=== PATIENT | male | born 1985 | race Two or more races ===

== ENCOUNTER 2022-08-15 11:19 | Emergency (ER) | payer OTHER ==
[~2022-08-15] VITALS: Ht 177.8 cm; Wt 107.5 kg
--- NOTE | 2022-08-15 11:20 | NUR ---
[id number], INVOLUNTARY "TWITCHING" X 1 HOUR. HX SEIZURE. 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
[2022-08-15] MEDS ORDERED: LORAZEPAM INJ 2 MG/ML VIAL ONE (11:25)
[2022-08-15] MEDS ORDERED: LORAZEPAM INJ 2 MG/ML VIAL IV ONE (11:30)
[2022-08-15] MEDS ORDERED: IV NS 0.9% 1,000 ML BAG IV ONE (12:00)
[2022-08-15 12:22] LABS: BASOPHILS % (AUTO) 0.4 % (0.0-2.0); EOSINOPHILS % (AUTO) 1.9 % (0.0-6.0); HEMATOCRIT 50 % (39-51); HEMOGLOBIN 15.9 g/dL (13.5-17.5); LYMPHOCYTES # (AUTO) 2.1 K/uL (0.8-4.8); LYMPHOCYTES % (AUTO) 26.3 % (20.0-44.0); MEAN CORPUSCULAR HGB CONC 32 g/dl (31.0-36.0); MEAN CORPUSCULAR VOLUME 89 fL (80-96); MONOCYTES # (AUTO) 0.6 K/uL (0.1-1.30); MONOCYTES % (AUTO) 7.5 % (2.0-12.0); NEUTROPHILS % (AUTO) 63.9 % (43.0-81.0); PLATELET COUNT (AUTO) 153 K/uL (150-450); RED BLOOD CELL COUNT(AUTO) 5.61 MIL/uL (4.5-6.0); WHITE BLOOD COUNT (AUTO) 7.8 K/uL (4.3-11.0)
[2022-08-15 12:38] LABS: SERUM AMMONIA 54 umol/L (11-32)
[2022-08-15 12:39] LABS: CALCIUM, SERUM 8.7 mg/dL (8.5-10.1); CARBON DIOXIDE 17 mmol/L (21-32); CHLORIDE 100 mmol/L (98-107); CREATININE 1.4 mg/dL (0.6-1.3); GLUCOSE 141 mg/dL (74-106); POTASSIUM 4.2 mmol/L (3.5-5.1); SODIUM SERUM 137 mmol/L (136-145); UREA NITROGEN, BLOOD 17 mg/dL (7-18)
[2022-08-15 12:44] LABS: ALANINE AMINOTRANSFERASE 50 U/L (12-78); ALCOHOL, BLOOD < 3 mg/dL (0-0); ALKALINE PHOSPHATASE 139 U/L (46-116); ASPARTATE AMINOTRANSFERASE 25 U/L (15-37); BILIRUBIN,DIRECT 0.1 mg/dL (0.0-0.2); BILIRUBIN,TOTAL 0.5 mg/dL (0.2-1.0); TOTAL PROTEIN, SERUM 7.8 g/dL (6.4-8.2)
[2022-08-15 12:45] LABS: ACETAMINOPHEN 0 ug/ml (10-30)
[2022-08-15 12:52] LABS: THYROID STIMULATING HORMONE 0.355 uIU/mL (0.358-3.74)
[2022-08-15 14:08] LABS: BILIRUBIN,URINE NEGATIVE (NEGATIVE); COLOR,URINE YELLOW (YELLOW); LEUKOCYTE ESTERASE ,URINE NEGATIVE (NEGATIVE); NITRITE, URINE NEGATIVE (NEGATIVE); PH,URINE 5.5 (5.0-8.0); PROTEIN,URINE TRACE mg/dl (NEGATIVE); UGLUCOSE NEGATIVE (NEGATIVE); UROBILINOGEN,URINE 0.2 EU/dL (0.2)
[2022-08-15 15:00] LABS: BACTERIA,URINE Few /HPF (None Seen); HYALINE CASTS, URINE Few /LPF (None Seen); RBC,URINE 0-2 /HPF (0-2); SQUAMOUS EPITHELIAL CELL,UR Few /HPF (None Seen); WBC,URINE 0-2 /HPF (0-3)
--- NOTE | 2022-08-15 17:37 | NUR ---
covid swab taken
--- NOTE | 2022-08-15 17:44 | NUR ---
ayde sexton director of casework doing peer to peer at [facility]
--- NOTE | 2022-08-15 18:50 | NUR ---
Sandip mcclellan in [facility] - 08/15/22 at 1909 by GENESIS DANIELX ROHAN RESULT TO [phone] THEN INFORM OPERATIONS AND MAINTENANCE MANAGER ROWENA ABOUT THE RESULT [phone]
--- NOTE | 2022-08-15 19:09 | NUR ---
FAX COVID RESULT TO [phone] THEN INFORM VOCATIONAL CASE MANAGER ROWENA ABOUT THE RESULT [phone]
--- NOTE | 2022-08-15 21:12 | NUR ---
ACCEPTTED PER LENA PETTY TO [facility] ACCEPTED BY DR MOCK TO ROOM 411-B, RN NUMBER FOR REPORT [phone]
[2022-08-15 21:26] VITALS: BP 117/54
--- NOTE | 2022-08-15 21:26 | NUR ---
Patient does not wish to proceed with medical care recommended by Dr. Lunsford. Patient given information related to possible complications, up to and including , which could occur as a result of leaving the hospital at this time. Patient verbalizes understanding of risks involved due to leaving against medical advice. Patient has signed AMA form.IV removed. Catheter intact and site benign. Pressure and 4x4 applied to site. No bleeding noted.
== END 2022-08-15 21:26 | disposition left against medical advice (07) ==
LOC: ER 11:21
DX: R25.2 Cramp and spasm (principal); N17.9 Acute kidney failure, unspecified; G40.909 Epilepsy, unspecified, not intractable, without status epilepticus; Z20.822 Contact with and (suspected) exposure to COVID-19; Z53.29 Procedure and treatment not carried out because of patient's decision for other reasons; I45.10 Unspecified right bundle-branch block; Z95.810 Presence of automatic (implantable) cardiac defibrillator
CPT/HCPCS: 99285; 96374; 96361; 93005; 71045; 82140; 85025; 80048; 80076; 81001; 36415; 84443; 84484; 87081; 87426; 80143; 80320; 80307; J2060; J7030; C9803; G0480